=== PATIENT | female | born 1950 | race Native Hawaiian/Other Pacific Islander ===

== ENCOUNTER 2017-05-08 12:32 | Emergency (ER) | payer OTHER, MEDICARE ==
[~2017-05-08] VITALS: Ht 160 cm; Wt 77.1 kg
[~2017-05-08 12:32] MED LIST: BLOOD PRESSURE; CELEXA20 MG PO; GLIM4TAB PO; METF500T PO; MOBIC7.5 M1 PO; RANI150T78 PO
[2017-05-08 12:45] VITALS: TEMP 98.3
[2017-05-08 14:45] VITALS: BP 143/74
== END 2017-05-08 15:12 | disposition home or self-care (01) ==
LOC: ED 12:32
PROC: 2W3LX1Z Immobilization of Right Lower Extremity using Splint (ICD-10-PCS; principal; 2017-05-08)
DX: S82.491A Other fracture of shaft of right fibula, initial encounter for closed fracture (principal); W01.0XXA Fall on same level from slipping, tripping and stumbling without subsequent striking against object, initial encounter; Y92.098 Other place in other non-institutional residence as the place of occurrence of the external cause
CPT/HCPCS: 99283

== ENCOUNTER 2017-10-14 10:47 | Outpatient (CLI) | payer OTHER, MEDICARE | END 2017-10-14 12:00 | disposition home or self-care (01) | LOC: MAMMO 10:47 | DX: Z12.31 Encounter for screening mammogram for malignant neoplasm of breast (principal); Z13.820 Encounter for screening for osteoporosis; Z78.0 Asymptomatic menopausal state ==

== ENCOUNTER 2018-06-05 21:40 | Emergency (ER) | payer OTHER ==
[~2018-06-05] VITALS: Ht 162.6 cm; Wt 76.2 kg
[2018-06-05 22:14] LABS: PLATELET COUNT 191 K/uL (152-353)
[2018-06-05 23:17] LABS: POTASSIUM 3.6 mmol/L (3.6-5.2)
[2018-06-06 01:22] VITALS: BP 125/63; TEMP 97.5
== END 2018-06-06 01:22 | disposition home or self-care (01) ==
LOC: ED 21:40
PROVIDERS: Emergency Medicine
DX: R42 Dizziness and giddiness (principal); E11.9 Type 2 diabetes mellitus without complications; I10 Essential (primary) hypertension; E11.649 Type 2 diabetes mellitus with hypoglycemia without coma
CPT/HCPCS: 80053; 81000; 85027; 93005; 96360; 96361; 96376; 99284; J7060

== ENCOUNTER → 2018-06-05 | Outpatient (CLI) | payer OTHER | END | disposition short-term general hospital (02) | LOC: AMB 20:55 | DX: E11.649 Type 2 diabetes mellitus with hypoglycemia without coma (principal) | CPT/HCPCS: A0425; A0429 ==

== ENCOUNTER 2019-11-17 01:11 | Outpatient (CLI) | payer OTHER ==
[2019-11-17] MEDS ORDERED: HYDR-3182 PO (16:02)
[2019-11-17] MEDS ORDERED: COZAAR25 MG PO (16:03)
[2019-11-17] MEDS ORDERED: HYDR25TA60 PO (16:04)
== END 2019-11-17 01:24 | disposition short-term general hospital (02) ==
LOC: AMB 01:11
DX: R11.0 Nausea (principal)
CPT/HCPCS: A0425; A0427

== ENCOUNTER 2019-11-17 15:12 | Outpatient (CLI) | payer OTHER ==
[2019-11-17] MEDS ORDERED: HYDR-3182 PO (16:02)
[2019-11-17] MEDS ORDERED: COZAAR25 MG PO (16:03)
[2019-11-17] MEDS ORDERED: HYDR25TA60 PO (16:04)
== END 2019-11-17 15:24 | disposition short-term general hospital (02) ==
LOC: AMB 15:12
DX: R41.82 Altered mental status, unspecified (principal); R47.81 Slurred speech
CPT/HCPCS: A0425; A0427

== ENCOUNTER 2019-11-17 15:26 | Emergency (ER) | payer OTHER ==
[~2019-11-17] VITALS: Ht 162.6 cm; Wt 76.2 kg
[2019-11-17 15:26] VITALS: TEMP 97.3
[2019-11-17] MEDS ORDERED: HYDR-3182 PO (16:02)
[2019-11-17] MEDS ORDERED: COZAAR25 MG PO (16:03)
[2019-11-17] MEDS ORDERED: HYDR25TA60 PO (16:04)
[2019-11-17 16:25] LABS: PLATELET COUNT 207 K/uL (152-353)
[2019-11-17 16:33] LABS: POTASSIUM 3.4 mmol/L (3.6-5.2)
[2019-11-17 18:00] VITALS: BP 165/92
== END 2019-11-17 18:25 | disposition home or self-care (01) ==
LOC: ED 15:30
PROVIDERS: Emergency Medicine
DX: F03.91 Unspecified dementia, unspecified severity, with behavioral disturbance (principal)
CPT/HCPCS: 36415; 80053; 81000; 83605; 85027; 99283